=== PATIENT | female | born 1990 | race Caucasian/White ===

== ENCOUNTER → 2017-01-22 | Outpatient (CLI) | payer BC ==
[~2017-01-22] MED LIST: ASPIRIN81 MG PO; FOLIC ACID PO; LEXAPRO20 MG PO; LORTAB 101 TAB 10/5 DOB; MOTRIN600 MG PO; PROMETHAZINE HC25 MG PO
--- NOTE | ~2017-01-22 | MR113 ---
[facility] A Service [facility] RADIOLOGY TEXT RESULTS PATIENT: ADAM WEAVER LOCATION: [facility] : 88 UNIT #: [id number] AGE: [address]: Marilyn Flores MD SEX: F ORDER DR: [id number] [place] [id number] O MR#: [id number] Acc #: [id number] NAME: ADAM WEAVER : 1990 SEX: F STUDY DATE/TIME: 01/22/2017 14:44 UNIT: [facility] ROOM: STUDY DESCRIPTION: MR Lumbar Wo Contrast Attending Physician: Marilyn Flores M.D. Referring Physician: Marilyn Flores M.D. Ordering Physician: Marilyn Flores M.D. Primary Care Physician: Marilyn Flores M.D. MRI CENTER REPORT This report is preliminary unless electronic signature is present. EXAM MRI lumbar spine without contrast. INDICATION Lower back pain with bilateral lower extremity radiculopathy for the past 2 months. PROCEDURE Sagittal and axial T1 and T2-weighted imaging of the lumbar spine without the administration of contrast. COMPARISON None FINDINGS Lumbar bodies have normal height. Alignment is preserved. Conus terminates at L1. Conus has normal caliber and signal intensity. No paravertebral mass. L1-L2: There is a very mild broad-based posterior bulge. No significant central canal and or neural foraminal narrowing. L2-L3: No significant central canal or neural foraminal narrowing. L3-L4: Mild facet change. No significant central canal or neural foraminal narrowing. L4-L5: Very mild broad-based posterior bulge. Mild facet change. No significant central canal or neural foraminal narrowing. L5-S1: No significant central canal or neural foraminal narrowing. IMPRESSION [facility] A Service [facility] RADIOLOGY TEXT RESULTS PATIENT: ADAM WEAVER LOCATION: [facility] : 88 UNIT #: [id number] AGE: [address]: Marilyn Flores MD SEX: F ORDER DR: Very mild degenerative change at a few levels. There is no significant central canal or neural foraminal narrowing in the lumbar spine. Dictated by... Heriberto Hale M.D. THIS IS AN ELECTRONICALLY VERIFIED REPORT Heriberto Hale M.D. at 01/24/2017 7:36 AM GHAZALA/anastasiya TD: 01/23/2017 12:54 JOB #: [id number] MRI CENTER REPORT
== END | disposition home or self-care (01) ==
LOC: SMRI 13:58
DX: M54.16 Radiculopathy, lumbar region (principal); M47.26 Other spondylosis with radiculopathy, lumbar region
CPT/HCPCS: 72148